=== PATIENT | female | born 1995 | race Caucasian/White ===

== ENCOUNTER 2019-12-20 14:17 | Emergency (ER) | payer SELFPAY ==
[2019-12-20 14:26] VITALS: BP 106/72; PULSE 93; RESP 18; TEMP 36.9; O2SAT 97; BMI 21.4
--- NOTE | 2019-12-20 15:30 | W.ED.BACK ---
HPI - Back Pain/Injury General: Chief Complaint: Back Pain/Injury Stated Complaint: back pain Time Seen by Provider: 12/20/19 15:30 Source: patient Mode of arrival: ambulatory Limitations: no limitations History of Present Illness: HPI Narrative: Patient is a 23-year-old female who presents to ED today with complaints of upper back pain over the past 4 days. 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 She noticed pain in her upper back following that shift. She states pain is to the left of her lower cervical spine/upper thoracic and radiates down into her left arm. She is not having any chest pain, difficulty breathing, cough, shortness of breath, painful or difficulty swallowing. No fever/chills. MD elicited complaint: back pain Onset (ago): day(s) Timing: constant Location: left upper back Radiation: other (L UE) Relieving factors: none Associated symptoms: Reports no associated symptoms; Deny chills or fever(s) Review of Systems Const: Denies: fever(s) or chills Eyes: Denies: change in vision Card: Denies: chest pain Resp: Denies: dyspnea Musc: Reports: back pain and extremity pain (L UE; radiation from back pain); Denies: neck pain, extremity swelling, joint pain or joint swelling Neuro: Reports: sensory changes (reports nerve pain to L UE); Denies: weakness in extremities Physical Exam Const: COMMON NORMALS: no acute distress, average body habitus, patient oriented x3, no limitations, healthy appearing, alert and well nourished Chest: COMMONS NORMALS: normal inspection of the chest and normal palpation of entire chest wall Resp: COMMON NORMALS: normal respiratory effort and clear to auscultation bilaterally AUSCULTATION: clear to auscultation bilaterally Cardio: COMMON NORMALS: regular rate and regular rhythm RATE: regular rate RHYTHM: regular rhythm Back/Pelvis: OTHER: TTP between area of medial left scapula and lower c spine/upper t spine BACK IMAGE (FEMALE): 1. area of pain Extremity: COMMON NORMALS: normal to inspection and full ROM GENERAL: Yes normal exam except as noted OTHER: strength 5/5 bilateral UEs; NV intact Neuro: COMMON NORMALS: patient oriented x3, moves all extremities, no focal motor deficits and no sensory deficits noted SENSORIUM/ORIENTATION: Yes alert Skin: COMMON NORMALS: no rashes or lesions noted GENERAL SKIN EXAM: no rashes or lesions noted Course Vital Signs: Vital signs: Vital Signs Temperature 98.4 F 12/20/19 14:26 Pulse Rate 93 12/20/19 14:26 Respiratory Rate 18 12/20/19 14:26 Blood Pressure 106/72 12/20/19 14:26 Pulse Oximetry 97 12/20/19 14:26 MDM - Back Pain/Injury MDM Narrative: Medical decision making narrative: Pt with pain down into L UE consistent with lower cervical radiculopathy. Will treat with steroids/muscle relaxers. Recommend followup with PCP if pain/symptoms persist. 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
[2019-12-20 15:49] VITALS: BP 98/69; PULSE 69; RESP 18; O2SAT 97
[2019-12-20] MEDS: ketorolac 30 mg/mL INJ IM (15:50)
[2019-12-20] MEDS: dexamethasone 10 mg/mL INJ 6 MG IM (15:51)
[2019-12-20 16:18] VITALS: BP 105/75; PULSE 70; RESP 18; O2SAT 97
== END 2019-12-20 16:19 | disposition home or self-care (01) ==
LOC: ER 15:57
PROVIDERS: Emergency Provider Physician Assistant; PCP Nurse Practitioner Family
DX: M54.12 Radiculopathy, cervical region (principal)
CPT/HCPCS: 12345; 96372; 99281; 99283; J1100; J1885

== ENCOUNTER 2020-04-20 19:26 | Emergency (ER) | payer OTHER, SELFPAY ==
[2020-04-20 19:56] VITALS: BP 106/73; PULSE 79; RESP 17; TEMP 36.8; O2SAT 97; BMI 22.4
--- NOTE | 2020-04-20 20:04 | ED_ITS ---
HPI - General Adult General: Chief complaint: General Medical Stated complaint: RIGHT SIDE JAW PAIN Time Seen by Provider: 04/20/20 20:04 History of Present Illness: HPI narrative: Patient is a 24-year-old female comes to the ED with right sided jaw pain. Patient says she has been dealing with this problem for the past several years. She says she grinds her teeth at night and tenses her jaw frequently throughout the day. She has episodes where she will have more acute jaw pain that lasts for couple hours to 1 to 2 days. She says currently she has been having right jaw pain for the past 4 days. She rates pain a 5 out of 10. Associated symptoms: Deny chest pain, dyspnea, headache(s), nausea, rash, palpitations or vomiting Review of Systems Const: Denies: fever(s), chills or fatigue Eyes: Denies: change in vision or eye discomfort ENMT: Reports: other (right jaw pain when opening and closing); Denies: throat pain, odynophagia, nasal discharge or nasal congestion Card: Denies: chest pain, palpitations, edema, swelling of feet/ankles, dyspnea on exertion or orthopnea Resp: Denies: dyspnea, productive cough or non-productive cough GI: Denies: abdominal pain, nausea, vomiting, diarrhea, constipation or hematochezia : Denies: flank pain, dysuria or hematuria Musc: Denies: neck pain, back pain or extremity swelling Skin/Breast: Denies: rash or new lesions Neuro: Denies: headache(s), numbness in extremities or weakness in extremities PFS ED PFSH: Social History Smoking and tobacco status: never smoked Physical Exam Const: COMMON NORMALS: no acute distress, patient oriented x3, healthy appearing and alert GENERAL APPEARANCE: cooperative and comfortable HENMT: COMMON NORMALS: normocephalic HEAD & SCALP: normocephalic FACE & SINUS: TMJ findings (No audible popping or clicking. Nontender to palpation and no erythema or swelling.) Nontender TMJ laterality: right MOUTH: Normal oral and palatal mucosa present and TMJ findings (No audible popping or clicking. Nontender to palpation and no erythema or swelling.) THROAT: posterior oropharynx normal and uvula midline Eye: COMMON NORMALS: Equal, round and reactive pupils present PUPIL: Yes Equal, round and reactive pupils present Neck/C-Spine: COMMON NORMALS: supple GENERAL: Yes normal visual inspection Resp: COMMON NORMALS: normal respiratory effort, No retractions, No use of accessory muscles and clear to auscultation bilaterally AUSCULTATION: clear to auscultation bilaterally Cardio: COMMON NORMALS: regular rate, regular rhythm, S1 normal heart sound present, S2 normal heart sound present, No gallops present (Cardio), No clicks present (Cardio), No murmurs present (Cardio) and Peripheral pulses 2+ throughout RATE: regular rate RHYTHM: regular rhythm HEART SOUNDS: S1 normal heart sound present and S2 normal heart sound present PERIPHERAL PULSES: Peripheral pulses 2+ throughout GI: COMMON NORMALS: Normal to inspection, nondistended, normoactive bowel sounds present, Soft to palpation, non-tender and no masses PALPATION: Yes Soft to palpation : COMMON NORMALS: Yes no CVA tenderness BLADDER/KIDNEY EXAM: Yes no CVA tenderness Back/Pelvis: COMMON NORMALS: no CVA tenderness Extremity: COMMON NORMALS: normal to inspection and no pedal edema Neuro: COMMON NORMALS: patient oriented x3 and moves all extremities SENSORIUM/ORIENTATION: Yes alert Skin: GENERAL SKIN EXAM: dry skin Course Vital Signs: Vital signs: Vital Signs Temperature 98.2 F 04/20/20 19:56 Pulse Rate 79 04/20/20 19:56 Respiratory Rate 17 04/20/20 19:56 Blood Pressure 106/73 04/20/20 19:56 Pulse Oximetry 97 04/20/20 19:56 MDM - General Adult MDM Narrative: Medical decision making narrative: Patient is a 24-year-old female comes to the ED with acute on chronic right jaw pain. Right jaw has pain when opening and closing. No erythema and nontender to palpation. No audible clicking or popping. hCG urine was negative. Patient diagnosed with TMJ joint pain on the right side. Given dose of Toradol while here in the ED and sent home with prescription for Medrol Dosepak and ibuprofen 800 mg. Return ED precautions given. Follow-up with PCP in 7 to 10 days. Patient understood agree with plan. Lab Data: Labs: Lab Results 04/20/20 Range/Units 20:27 HCG, Qual Negative (Negative) Discharge Plan Discharge Patient Disposition: Home Clinical Impression: Temporomandibular joint (TMJ) pain Qualifiers: Laterality: right Qualified Code(s): M26.621 - Arthralgia of right temporomandibular joint Condition: Stable Prescriptions: New ibuprofen 800 mg tablet 800 mg PO Q8H PRN (Reason: pain) Qty: 30 RF: 0 Medrol (Milo) 4 mg tablets,dose pack See Rx Instructions .ROUTE .COMPLEX Qty: 21 RF: 0 No Action amoxicillin-pot clavulanate [Augmentin] 875-125 mg tablet 1 tab PO BID 10 Days Qty: 20 RF: 0 Discharge Orders: Discharge Order (Routine); Ordered 04/20/20 Ordered By: Helio Rueda Discharge Diet: Regular Discharge Activity: Increase activity as tolerated Patient Instructions: Temporomandibular Disorder (ED), TMJ (Temporomandibular Joint Syndrome) Activity Restrictions/Additional Instructions: Follow-up with medical provider as directed in 7 to 10 days. Take medications as prescribed. Return to the ER or your medical provider if condition worsens. Please read and understand discharge instructions. If any questions, please ask. 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
[2020-04-20 21:22] LABS: HCG Qualitative Urine. Negative (Negative)
[2020-04-20] MEDS: ketorolac 60 mg/2 mL INJ IM (21:43)
== END 2020-04-20 21:45 | disposition home or self-care (01) ==
PROVIDERS: Emergency Provider Physician Assistant
DX: M26.621 Arthralgia of right temporomandibular joint (principal)
CPT/HCPCS: 12345; 81025; 96372; 99281; 99283; J1885

== ENCOUNTER 2020-05-22 17:54 | Emergency (ER) | payer OTHER, MEDICAID, SELFPAY ==
[2020-05-22 18:10] VITALS: BP 117/83; PULSE 82; RESP 16; TEMP 36.2; O2SAT 99; BMI 21.8
--- NOTE | 2020-05-22 19:18 | ED_ITS ---
HPI - Dental/Oral General: Chief complaint: Dental/Oral Stated complaint: Pain in Jaw/Right side Time Seen by Provider: 05/22/20 19:15 Source: patient Mode of arrival: ambulatory Limitations: no limitations History of Present Illness: HPI Narrative: Luz Maria is a nice 24-year-old female who comes in complaining of right TMJ pain. She states the pain also is in her ear. She denies any dental pain. She denies any swelling of her face, nausea or vomiting, fever or otherwise. Patient states that she grinds her teeth a good deal because she has anxiety. She states that is starting to hurt when she does this. She denies any other complaints or concerns. Associated symptoms: Reports ear or mastoid pain; Denies fever(s), odynophagia or tongue swelling Review of Systems Const: Denies: fever(s), chills, body aches, fatigue, malaise or diaphoresis Eyes: Denies: change in vision, blurry vision, photophobia, eye discomfort, eye discharge, eye redness or yellow eyes ENMT: Reports: ear or mastoid pain; Denies: throat pain, odynophagia, hoarseness, swelling of lips/tongue, ear discharge, change in hearing or nasal discharge Card: Denies: chest pain, palpitations, irregular heart rhythm, edema, lighth eadedness, syncope, pre-syncope, dyspnea on exertion or orthopnea Resp: Denies: dyspnea, productive cough, non-productive cough, wheezing, hemoptysis or chest congestion GI: Denies: abdominal pain, nausea, vomiting, hematemesis, coffee ground emesis, heartburn, diarrhea, constipation, GI cramping, hematochezia or melena : Denies: flank pain, dysuria, urinary frequency, urinary urgency or hematuria Musc: Denies: neck pain, back pain, extremity pain, extremity swelling, joint pain, joint swelling, joint redness, joint warmth or joint stiffness Skin/Breast: Denies: rash, pruritus, erythema, skin pain or skin tenderness Neuro: Denies: headache(s), numbness in extremities, weakness in extremities, sensory changes, lack of coordination, difficulty walking, dizziness, vertigo, confusion, Slurred speech present or seizure-like activity Slim/Lymph: Denies: easy bruising, easy bleeding, petechiae, purpura or enlarged lymph nodes All/Imm: Denies: urticaria, throat swelling, tongue swelling, facial swelling or acute wheezing PFSH ED PFSH: Medical History (Updated 05/22/20 @ 19:26 by Verónica Nice) Anxiety Social History Smoking and tobacco status: never smoked Physical Exam Const: COMMON NORMALS: no acute distress, patient oriented x3, no limitations and alert GENERAL APPEARANCE: cooperative HENMT: COMMON NORMALS: normocephalic, atraumatic, external ears normal, EAC's normal and Normal external nose present HEAD & SCALP: normal to inspection, normocephalic and atraumatic FACE & SINUS: normal facial exam and face symmetric NOSE: Normal external nose present and Normal nares present EXTERNAL EAR: Yes external ears normal EXTERNAL AUDITORY CANAL: EAC's normal TYMPANIC MEMBRANE: TM abnormal TM laterality: right (No pain with palpation of pinna or with pressure on the tragus.) Details: erythematous MOUTH: Normal oral and palatal mucosa present, lip normal, tongue normal and TMJ findings TMJ Findings: Tender TMJ to palpation laterality: right Eye: COMMON NORMALS: Equal, round and reactive pupils present and conjunctivae normal GENERAL EYE: appearance normal, both eyes and all related structures ALIGNMENT: Yes alignment normal PERIORBITAL: periorbital findings normal EYELID: eyelids normal CONJUNCTIVA: Yes conjunctivae normal SCLERA: sclerae normal PUPIL: Yes Equal, round and reactive pupils present Neck/C-Spine: COMMON NORMALS: full ROM, no lymphadenopathy, supple, no meningeal signs and no JVD GENERAL: Yes normal visual inspection and Yes trachea midline Chest: COMMONS NORMALS: normal inspection of the chest and normal palpation of entire chest wall Resp: COMMON NORMALS: normal respiratory effort, No retractions, No use of accessory muscles and clear to auscultation bilaterally EFFORT & INSPECTION: Yes able to speak in complete sentences and Yes symmetric chest movement AUSCULTATION: clear to auscultation bilaterally, no crackles, no rales, no rhonchi and no wheezes Cardio: COMMON NORMALS: no JVD, regular rate, regular rhythm, S1 normal heart sound present and S2 normal heart sound present RATE: regular rate RHYTHM: regular rhythm HEART SOUNDS: S1 normal heart sound present, S2 normal heart sound present, no click, no gallops, no murmurs and no rubs GI: COMMON NORMALS: Soft to palpation and No hepatosplenomegaly present PALPATION: Yes Soft to palpation, No Tenderness to palpation present (GI), No Guarding due to palpation present (GI), No Rigid due to palpation, Yes No hepatosplenomegaly present, No Hernia present, No Palpable mass present and No Pulsatile mass present : COMMON NORMALS: Yes no CVA tenderness BLADDER/KIDNEY EXAM: Yes no CVA tenderness EXTERNAL FEMALE EXAM: No Hernia present Back/Pelvis: COMMON NORMALS: no CVA tenderness, thoracic and lumbar spine normal to inspection, no thoracic nor lumbar tenderness and thoraco-lumbar ROM normal Extremity: COMMON NORMALS: normal to inspection, full ROM, capillary refill normal, no joint enlargement, no clubbing, cyanosis or edema and no calf tenderness Neuro: COMMON NORMALS: patient oriented x3, CN's II-XII intact bilaterally, moves all extremities, no focal motor deficits and no sensory deficits noted SENSORIUM/ORIENTATION: Yes alert MENINGEAL SIGNS: Yes no meningeal signs SPEECH: speech normal Psych: COMMON NORMALS: mental status grossly normal, Normal thought process present, cooperative, normal affect, speech normal and activity/motor behavior normal SPEECH: Yes normal speech THOUGHT PROCESS: Normal thought process present Skin: COMMON NORMALS: no rashes or lesions noted, turgor normal, no jaundice, no petechiae and no mottling GENERAL SKIN EXAM: no rashes or lesions noted and turgor normal Course Vital Signs: Vital signs: Vital Signs Temperature 97.2 F L 05/22/20 18:10 Pulse Rate 82 05/22/20 18:10 Respiratory Rate 16 05/22/20 18:10 Blood Pressure 117/83 05/22/20 18:10 Pulse Oximetry 99 05/22/20 18:10 MDM - Dental/Oral MDM Narrative: Medical decision making narrative: Patient appears to have more of a TMJ syndrome than true otitis media. I will treat her for both. At this time she appears stable for discharge. I see no sign of deep space infection such as otitis externa, Tristin's angina, dental infection or otherwise. Patient agrees to return for symptoms change or worsen but she wants to try to follow-up with Dr. Nayak as an outpatient but will return here if needed. Discharge Plan Discharge Patient Disposition: Home Clinical Impression: TMJ inflammation Otitis media Qualifiers: Otitis media type: suppurative Chronicity: acute Laterality: right Recurrence: non-recurrent Spontaneous tympanic membrane rupture: without spontaneous rupture Qualified Code(s): H66.001 - Acute suppurative otitis media without spontaneous rupture of ear drum, right ear Condition: Stable Prescriptions: New Augmentin 875-125 mg tablet 1 tab PO BID 10 Days Qty: 20 RF: 0 hydroxyzine HCl 25 mg tablet 25 mg PO QID PRN (Reason: anxiety) Qty: 30 RF: 0 No Action amoxicillin-pot clavulanate [Augmentin] 875-125 mg tablet 1 tab PO BID 10 Days Qty: 20 RF: 0 ibuprofen 800 mg tablet 800 mg PO Q8H PRN (Reason: pain) Qty: 30 RF: 0 Medrol (Milo) 4 mg tablets,dose pack See Rx Instructions .ROUTE .COMPLEX Qty: 21 RF: 0 Discharge Orders: Discharge ED (Routine); Ordered 05/22/20 Ordered By: Verónica Nice Referrals: Joseph Nayak MD [Physician] - Discharge Diet: Soft Mechanical Discharge Activity: Increase activity as tolerated Patient Instructions: Otitis Media (ED), Temporomandibular Disorder (ED) Activity Restrictions/Additional Instructions: Please return to the ER immediately for any of the signs or symptoms listed on your discharge instruction sheets, worsening/changing of your symptoms, you are not getting better as quickly as expected, or for ANY other cause or concerns. Return to the ER for facial swelling, fever, worsening pain, or for any other cause for concern. 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
[2020-05-22] MEDS: amoxicillin-clav 875-125 mg Tablet 1 TAB PO (20:05)
== END 2020-05-22 20:10 | disposition home or self-care (01) ==
PROVIDERS: Emergency Provider Emergency Medicine
DX: M26.69 Other specified disorders of temporomandibular joint (principal); H66.001 Acute suppurative otitis media without spontaneous rupture of ear drum, right ear
CPT/HCPCS: 12345; 99281; 99283

== ENCOUNTER → 2020-07-11 13:58 | Outpatient (BNVA) | payer MEDICAID, SELFPAY | PROVIDERS: Visit Provider Obstetrics & Gynecology | DX: N93.9 Abnormal uterine and vaginal bleeding, unspecified (principal) | CPT/HCPCS: 83001; 84146; 84443; 84703 ==

== ENCOUNTER → 2020-07-18 16:03 | Outpatient (BNVA) | payer OTHER, MEDICAID, SELFPAY | PROVIDERS: Visit Provider Obstetrics & Gynecology | DX: R10.2 Pelvic and perineal pain (principal) | CPT/HCPCS: 76830 ==

== ENCOUNTER 2020-08-16 14:59 | Emergency (ER) | payer OTHER, MEDICAID, SELFPAY ==
[2020-08-16 15:05] VITALS: BP 95/64; PULSE 72; RESP 16; TEMP 36.5; O2SAT 99; BMI 21.1
[2020-08-16 15:09] VITALS: BP 108/66; PULSE 63; RESP 18; O2SAT 99
--- NOTE | 2020-08-16 16:05 | ED_ITS ---
HPI - Nausea/Vomiting/Diarrhea General: Chief complaint: Nausea/Vomiting/Diarrhea Stated complaint: N/V Time Seen by Provider: 08/16/20 15:58 Source: patient Mode of arrival: ambulatory Limitations: no limitations History of Present Illness: HPI Narrative: Symptoms started about 3 AM this morning, sudden onset of nausea and vomiting. The last meal she ate was yesterday afternoon and did not have anything at nighttime. She denies any fever but has some chills just before vomiting. She has occasional lightheadedness just before vomiting. She is here to be evaluated for this MD elicited complaint: nausea and vomiting Onset (ago): hour(s) (12) Description of vomiting: food contents Associated nausea: Yes Associated abdominal pain: Yes Location of pain: Epigastric Pain consistency: intermittent (only before vomiting) Severity: mild Quality: cramping Exacerbating factors: none Relieving factors: none Associated symtoms: Reports nausea; Denies altered mental status, anxiety, bloating, change in vision, chest pain, cough, diaphoresis, decreased urine output, dizziness, dysuria, epistaxis, fatigue, fecal incontinence, fevers/chills, headache(s), anorexia, malaise, myalgias, numbness, palpitations, rash, short of breath, syncope, tenesmus, tinnitus or weakness Review of Systems General: Reports: 10 or more systems reviewed and unremarkable except in HPI and below Const: Denies: fatigue, malaise or diaphoresis Eyes: Denies: change in vision ENMT: Denies: tinnitus or epistaxis Card: Denies: chest pain, palpitations or syncope Resp: Denies: dyspnea, productive cough or non-productive cough GI: Reports: nausea; Denies: bloating or fecal incontinence : Denies: dysuria Musc: Denies: neck pain, back pain or extremity swelling Skin/Breast: Denies: rash, pruritus or erythema Neuro: Denies: headache(s) or dizziness Psych: Denies: anxiety Endo: Denies: polyuria, polydipsia or tired all the time PFSH ED PFSH: Medical History (Reviewed 08/16/20 @ 16:07 by Nayeli Cueva MD, [facility] [place]) Anxiety Family History (Reviewed 08/16/20 @ 16:07 by Nayeli Cueva MD, [facility] [place]) Mother Heart disease Denies family history of Colon cancer Ovarian cancer Diabetes Clotting disorder Hyperlipidemia Breast cancer Anesthesia complication Bleeding disorder Hypertension Uterine cancer Thyroid condition Stroke Social History (Reviewed 08/16/20 @ 16:07 by Nayeli Cueva MD, [facility] [place]) Smoking and tobacco status: former smoker Quit status (tobacco): has quit using tobacco Year quit tobacco: 2019 Alcohol intake: never Female Reproductive History: Date of last menstrual period: 07/26/20 Physical Exam Const: COMMON NORMALS: no acute distress, average body habitus, patient oriented x3, no limitations, healthy appearing, alert and well nourished EXAM LIMITATIONS: no altered mental status HENMT: COMMON NORMALS: normocephalic, atraumatic and moist oral mucous membranes HEAD & SCALP: normocephalic and atraumatic Neck/C-Spine: COMMON NORMALS: no meningeal signs and no JVD Resp: COMMON NORMALS: normal respiratory effort, No retractions, No use of accessory muscles, clear to auscultation bilaterally and percussion normal AUSCULTATION: clear to auscultation bilaterally PERCUSSION: percussion normal Cardio: COMMON NORMALS: no JVD, regular rate, regular rhythm, S1 normal heart sound present, S2 normal heart sound present, No gallops present (Cardio), No clicks present (Cardio), No murmurs present (Cardio), No rub (Cardio) and Peripheral pulses 2+ throughout RATE: regular rate RHYTHM: regular rhythm HEART SOUNDS: S1 normal heart sound present and S2 normal heart sound present PERIPHERAL PULSES: Peripheral pulses 2+ throughout GI: COMMON NORMALS: Normal to inspection, nondistended, normoactive bowel sounds present, Soft to palpation, non-tender, No hepatosplenomegaly present, no masses and no bruits PALPATION: Yes Soft to palpation and Yes No hepatosplenomegaly present Extremity: COMMON NORMALS: normal to inspection, full ROM, capillary refill normal, no calf tenderness and no pedal edema Neuro: COMMON NORMALS: patient oriented x3 SENSORIUM/ORIENTATION: Yes alert MENINGEAL SIGNS: Yes no meningeal signs Skin: COMMON NORMALS: no rashes or lesions noted, no wounds, turgor normal, no jaundice, no petechiae and no mottling GENERAL SKIN EXAM: no rashes or lesions noted and turgor normal Course Reevaluation(s): Reevaluation #1: Discussed her lab findings with her, unremarkable. No need for imaging. We will discharge her home with a prescription for antiemetics. She voiced understanding and is in agreement with the plan. Time: 18:29 Vital Signs: Vital signs: Vital Signs Temperature 97.7 F 08/16/20 15:05 Pulse Rate 63 08/16/20 18:38 Respiratory Rate 18 08/16/20 18:38 Blood Pressure 101/61 08/16/20 18:38 Pulse Oximetry 98 08/16/20 18:38 MDM - Nausea/Vomiting/Diarrhea MDM Narrative: Medical decision making narrative: 24-year-old female patient who presents to the emergency department with nausea and vomiting that started earlier today. Examination is benign, labs unremarkable. No indication for imaging at this time. She is discharged home with a prescription for antiemetics. Medical Records: Attestation: I reviewed the patient's medical records. Lab Data: Attestation: I reviewed the patient's lab results. Labs: Lab Results 08/16/20 08/16/20 08/16/20 Range/Units 16:26 16:26 16:26 WBC 13.5 H (4.0-10.0) 10^3/ uL RBC 4.71 (4.1-5.3) 10^6/u L Hgb 14.0 (11.5-15.3) g/dL Hct 42.4 (37.0-47.0) % MCV 90.0 (81-99) fL MCH 29.7 (28.0-34.0) pg MCHC 33.0 (30.0-36.0) g/dL RDW 12.1 (12.1-15.1) % Plt Count 307 (130-400) 10^3/c mm MPV 10.9 H (7.4-10.4) fL Neut % (Auto) 75.8 % Lymph % (Auto) 17.9 % [place] % (Auto) 5.1 % Eos % (Auto) 0.4 % Baso % (Auto) 0.5 % Neut # (Auto) 10.20 H (1.8-7.7) 10^3/u L Lymph # (Auto) 2.4 (0.8-4.8) 10^3/u L [place] # (Auto) 0.7 (0.2-0.9) 10^3/u L Eos # (Auto) 0.1 (0.0-0.8) 10^3/u L Baso # (Auto) 0.1 (0.0-0.1) 10^3/u L Nucleated RBC % (a uto) 0 % Nucleated RBCs # 0.0 /100WBC Sodium 137 (136-145) mmol/L Potassium 3.9 (3.5-5.1) mmol/L Chloride 104 (98-107) mmol/L Carbon Dioxide 23 (22-29) mmol/L Anion Gap 13.9 (5-19) BUN 7 (6-20) mg/dL Creatinine 0.5 (0.5-0.9) mg/dL GFR Calculation 154.3 H (90-130) mL/min Glucose 88 (65-115) mg/dL Calculated Osmolal ity 281 L (285-295) mOsm/k g Lactate 0.8 (0.5-2.2) mmol/L Calcium 9.1 (8.5-10.5) mg/dL Total Bilirubin 0.9 (0.15-1.2) mg/dL AST 14 (0-32) U/L ALT 7 (0-33) U/L Alkaline Phosphata se 64 (35-105) IU/L C-Reactive Protein 0.9 (0.0-4.9) mg/L Total Protein 7.3 (6.6-8.7) g/dL Albumin 4.7 (3.5-5.2) g/dL Globulin 2.6 (1.3-4.6) g/dL Lipase 16 (13-60) U/L HCG, Qual (Negative) Urine Color (Yellow) Urine Appearance (CLEAR) Urine pH (5-7) Ur Specific Gravit y (1.005-1.030) Urine Protein (Negative) Urine Glucose (UA) (Normal) Urine Ketones (Negative) Urine Blood (Negative) Urine Nitrate (Negative) Urine Bilirubin (Negative) Urine Urobilinogen (Negative) mg/dL Ur Leukocyte Merle ase (Negative) Urine RBC (0-2) /hpf Urine WBC (0-5) /hpf Ur Squamous Epith Cells (0-5) /hpf Amorphous Sediment Urine Bacteria (NONE) /hpf Urine Mucus /hpf 03/03/21 03/03/21 Range/Units 16:26 17:21 WBC (4.0-10.0) 10^3/ uL RBC (4.1-5.3) 10^6/u L Hgb (11.5-15.3) g/dL Hct (37.0-47.0) % MCV (81-99) fL MCH (28.0-34.0) pg MCHC (30.0-36.0) g/dL RDW (12.1-15.1) % Plt Count (130-400) 10^3/c mm MPV (7.4-10.4) fL Neut % (Auto) % Lymph % (Auto) % [place] % (Auto) % Eos % (Auto) % Baso % (Auto) % Neut # (Auto) (1.8-7.7) 10^3/u L Lymph # (Auto) (0.8-4.8) 10^3/u L [place] # (Auto) (0.2-0.9) 10^3/u L Eos # (Auto) (0.0-0.8) 10^3/u L Baso # (Auto) (0.0-0.1) 10^3/u L Nucleated RBC % (a uto) % Nucleated RBCs # /100WBC Sodium (136-145) mmol/L Potassium (3.5-5.1) mmol/L Chloride (98-107) mmol/L Carbon Dioxide (22-29) mmol/L Anion Gap (5-19) BUN (6-20) mg/dL Creatinine (0.5-0.9) mg/dL GFR Calculation (90-130) mL/min Glucose (65-115) mg/dL Calculated Osmolal ity (285-295) mOsm/k g Lactate (0.5-2.2) mmol/L Calcium (8.5-10.5) mg/dL Total Bilirubin (0.15-1.2) mg/dL AST (0-32) U/L ALT (0-33) U/L Alkaline Phosphata se (35-105) IU/L C-Reactive Protein (0.0-4.9) mg/L Total Protein (6.6-8.7) g/dL Albumin (3.5-5.2) g/dL Globulin (1.3-4.6) g/dL Lipase (13-60) U/L HCG, Qual Negative (Negative) Urine Color Yellow (Yellow) Urine Appearance Clear (CLEAR) Urine pH 5 (5-7) Ur Specific Gravit y 1.025 (1.005-1.030) Urine Protein Neg (Negative) Urine Glucose (UA) Norm (Normal) Urine Ketones Negative (Negative) Urine Blood Neg (Negative) Urine Nitrate Negative (Negative) Urine Bilirubin Neg (Negative) Urine Urobilinogen 4 H (Negative) mg/dL Ur Leukocyte Merle ase 1+ H (Negative) Urine RBC Rare (0-2) /hpf Urine WBC 5-10 H (0-5) /hpf Ur Squamous Epith Cells 0-4 H (0-5) /hpf Amorphous Sediment Not Reportable Urine Bacteria None (NONE) /hpf Urine Mucus 1+ /hpf Discharge Plan Discharge Patient Disposition: Home Clinical Impression: Nausea & vomiting Qualifiers: Vomiting type: unspecified Vomiting Intractability: unspecified Qualified Code(s): R11.2 - Nausea with vomiting, unspecified Condition: Stable Prescriptions: New promethazine 25 mg tablet 25 mg PO TID PRN (Reason: allergy symptoms) Qty: 30 RF: 0 Continued Tylenol 325 mg Tablet 325 - 650 mg PO QID PRN (Reason: PAIN/HEADACHE) RF: 0 ibuprofen 200 mg Tablet 200 - 400 mg PO Q6H PRN (Reason: PAIN/HEADACHE) RF: 0 Discharge Orders: Discharge ED (Routine); Ordered 08/16/20 Ordered By: Nayeli Cueva Discharge Diet: Advance as tolerated Discharge Activity: Increase activity as tolerated Patient Instructions: Acute Nausea and Vomiting (ED) Activity Restrictions/Additional Instructions: Return for any new or worsening symptoms. Take the medication as needed for nausea or vomiting. Continue your home medications as needed. 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
[2020-08-16 16:31] VITALS: BP 108/66; PULSE 66; RESP 18; O2SAT 99
[2020-08-16] MEDS: ondansetron 2 mg/ML SDV 2 mL 4 MG IVP (16:31)
[2020-08-16] MEDS: sodium chloride 0.9% 1,000 ML 999 ML IV (16:31)
[2020-08-16 16:38] LABS: Basophils # 0.1 10^3/uL (0.0-0.1); Basophils % 0.5 %; Eosinophils # 0.1 10^3/uL (0.0-0.8); Eosinophils % 0.4 %; Hematocrit 42.4 % (37.0-47.0); Lymphocytes # 2.4 10^3/uL (0.8-4.8); Lymphocytes % 17.9 %; Mean Corpuscular Hemoglobin 29.7 pg (28.0-34.0); Mean Platelet Volume 10.9 fL (7.4-10.4); Monocytes # 0.7 10^3/uL (0.2-0.9); Monocytes % 5.1 %; Neutrophils % 75.8 %; Nucleated Red Blood Cells % 0 %; Platelet Count 307 10^3/cmm (130-400); Red Blood Count 4.71 10^6/uL (4.1-5.3); Red Cell Distribution Width 12.1 % (12.1-15.1); White Blood Count 13.5 10^3/uL (4.0-10.0)
[2020-08-16 16:51] LABS: HCG, Serum Qual Negative (Negative)
[2020-08-16 16:58] LABS: Lactate (Lactic Acid level) 0.8 mmol/L (0.5-2.2)
[2020-08-16 16:59] LABS: Alanine Aminotransferase 7 U/L (0-33); Albumin Level 4.7 g/dL (3.5-5.2); Alkaline Phosphatase 64 IU/L (35-105); Anion Gap 13.9 (5-19); Aspartate Amino Transferase 14 U/L (0-32); Blood Urea Nitrogen 7 mg/dL (6-20); C Reactive Protein 0.9 mg/L (0.0-4.9); Calcium 9.1 mg/dL (8.5-10.5); Carbon Dioxide 23 mmol/L (22-29); Chloride 104 mmol/L (98-107); Globulin 2.6 g/dL (1.3-4.6); Glomerular Filtration Rate 154.3 mL/min (90-130); Glucose 88 mg/dL (65-115); Lipase 16 U/L (13-60); Osmolality Calculated 281 mOsm/kg (285-295); Potassium 3.9 mmol/L (3.5-5.1); Sodium 137 mmol/L (136-145); Total Bilirubin 0.9 mg/dL (0.15-1.2); Total Protein 7.3 g/dL (6.6-8.7)
[2020-08-16 17:23] VITALS: BP 102/66; PULSE 59; RESP 18; O2SAT 98
[2020-08-16 18:00] VITALS: BP 101/61; PULSE 58; RESP 16; O2SAT 98
[2020-08-16 18:03] LABS: Add Urine Microscopic? YES; Bilirubin Urine Neg (Negative); Blood Urine Neg (Negative); Glucose Urine UA Norm (Normal); Ketones Urine Negative (Negative); Leukocyte Esterase Urine 1+ (Negative); Nitrate Urine Negative (Negative); Protein Urine Neg (Negative); Specific Gravity, Urine 1.025 (1.005-1.030); Urine Appearance Clear (CLEAR); Urine Color Yellow (Yellow); Urobilinogen Urine 4 mg/dL (Negative); pH Urine 5 (5-7)
[2020-08-16 18:04] LABS: Mucus Urine 1+ /hpf; RBC Urine RARE /hpf (0-2); Squamous Epithelial Cell Urine 0-4 /hpf (0-5)
[2020-08-16 18:05] LABS: Add Urine Culture? No
[2020-08-16 18:38] VITALS: BP 101/61; PULSE 63; RESP 18; O2SAT 98
== END 2020-08-16 18:38 | disposition home or self-care (01) ==
PROVIDERS: Emergency Provider Family Medicine
DX: R11.2 Nausea with vomiting, unspecified (principal); Z87.891 Personal history of nicotine dependence
CPT/HCPCS: 80053; 81001; 83605; 83690; 84703; 85025; 86140; 96361; 96374; 99283; J2405; J7030

== ENCOUNTER → 2020-08-18 11:04 | Outpatient (BNVA) | payer OTHER, MEDICAID, SELFPAY | PROVIDERS: Visit Provider Obstetrics & Gynecology | DX: G89.29 Other chronic pain (principal); R10.2 Pelvic and perineal pain | CPT/HCPCS: 87635 ==

== ENCOUNTER 2020-08-23 07:24 | Day surgery (SDC) | payer MEDICAID, SELFPAY ==
[2020-08-21 11:46] VITALS: BMI 20.9
[2020-08-21 12:27] LABS: Basophils # 0.1 10^3/uL (0.0-0.1); Basophils % 0.7 %; Eosinophils # 0.1 10^3/uL (0.0-0.8); Eosinophils % 0.8 %; Hematocrit 41.4 % (37.0-47.0); Hemoglobin 13.6 g/dL (11.5-15.3); Lymphocytes # 2.7 10^3/uL (0.8-4.8); Lymphocytes % 31.5 %; Mean Corpuscular HGB Conc 32.9 g/dL (30.0-36.0); Mean Corpuscular Hemoglobin 29.6 pg (28.0-34.0); Mean Platelet Volume 10.9 fL (7.4-10.4); Monocytes # 0.5 10^3/uL (0.2-0.9); Monocytes % 5.4 %; Neutrophils # 5.21 10^3/uL (1.8-7.7); Neutrophils % 61.5 %; Nucleated Red Blood Cells % 0 %; Platelet Count 288 10^3/cmm (130-400); Red Cell Distribution Width 12.2 % (12.1-15.1); White Blood Count 8.5 10^3/uL (4.0-10.0)
[2020-08-21 12:35] LABS: Add Urine Microscopic? YES; Bilirubin Urine Neg (Negative); Blood Urine 3+ (Negative); Glucose Urine UA Norm (Normal); Ketones Urine Negative (Negative); Leukocyte Esterase Urine Negative (Negative); Nitrate Urine Negative (Negative); Protein Urine Neg (Negative); Urine Appearance SL Hazy (CLEAR); Urine Color Yellow (Yellow); Urobilinogen Urine Norm (Negative); pH Urine 5 (5-7)
[2020-08-21 12:52] LABS: RBC Urine 25-40 /hpf (0-2)
[2020-08-21 12:53] LABS: Bacteria Urine 2+ /hpf; Squamous Epithelial Cell Urine 0-4 /hpf (0-5)
[2020-08-21 12:54] LABS: Add Urine Culture? Yes
--- NOTE | 2020-08-21 12:54 | ANES.PREANE2 ---
Pre-Anesthetic Assessment Pre-Anesthetic Assessment: Height/Weight: Height 1.65 m Weight 57.153 kg Preop Diagnosis: Chronic pelvic pain Proposed Procedure: Operation Date: 08/23/20 11:15 Proposed Procedures p Laparoscopy Diagnostic 71729 R10.2(Not Applicable) - Lb Griffith MD Was Beta Jessica taken within 24 hours: N/A Social: Social History: No alcohol and No tobacco Exam: Pre-Anes Outpt Exam: alert, oriented x 3, clear to auscultation bilaterally and regular rate & rhythm Airway: Submandibular: WNL Cervical ROM: WNL MP: 2 Dentition: Full Neuropsych: Neuropsych: Anxiety Comments: Chronic pain Anesthetic Plan: ASA status: 2 Anesthesia: General Other: PONV Risk of > 500 ml blood loss (7ml/kg in children): No PFSH Anesthesia PFSH: Medical History Anxiety Family History Mother Heart disease Denies family history of Colon cancer Ovarian cancer Diabetes Clotting disorder Hyperlipidemia Breast cancer Anesthesia complication Bleeding disorder Hypertension Uterine cancer Thyroid condition Stroke Social History (Updated 08/21/20 @ 08:10 by Salma Hernandez RN) Smoking and tobacco status: former smoker Quit status (tobacco): has quit using tobacco Year quit tobacco: 2019 Alcohol intake: never Substance/Drug Use: never Female Reproductive History: Date of last menstrual period: 08/20/20 Data Anesthesia CBC & Chem 7: 08/21/20 12:00 08/21/20 12:00 Other Labs: Laboratory Results - last 48 hr 08/21/20 08/21/20 11:55 12:00 WBC 8.5 RBC 4.60 Hgb 13.6 Hct 41.4 MCV 90.0 MCH 29.6 MCHC 32.9 RDW 12.2 Plt Count 288 MPV 10.9 H Neut % (Auto) 61.5 Lymph % (Auto) 31.5 [place] % (Auto) 5.4 Eos % (Auto) 0.8 Baso % (Auto) 0.7 Neut # (Auto) 5.21 Lymph # (Auto) 2.7 [place] # (Auto) 0.5 Eos # (Auto) 0.1 Baso # (Auto) 0.1 Nucleated RBC % (auto) 0 Nucleated RBCs # 0.0 Urine Color Yellow Urine Appearance Sl hazy Urine pH 5 Ur Specific [place] 1.010 Urine Protein Neg Urine Glucose (UA) Norm Urine Ketones Negative Urine Blood 3+ H Urine Nitrate Negative Urine Bilirubin Neg Urine Urobilinogen Norm Ur Leukocyte Esterase Negative Urine RBC 25-40 H Urine WBC None Ur Squamous Epith Cells 0-4 H Amorphous Sediment Not Reportable Urine Bacteria 2+ H Cardiac Studies: No Data to Display
[2020-08-21 13:29] LABS: Alanine Aminotransferase 7 U/L (0-33); Albumin Level 4.8 g/dL (3.5-5.2); Alkaline Phosphatase 65 IU/L (35-105); Anion Gap 14.4 (5-19); Aspartate Amino Transferase 14 U/L (0-32); Blood Urea Nitrogen 4 mg/dL (6-20); Calcium 9.8 mg/dL (8.5-10.5); Carbon Dioxide 27 mmol/L (22-29); Chloride 102 mmol/L (98-107); Globulin 2.5 g/dL (1.3-4.6); Glomerular Filtration Rate 104.6 mL/min (90-130); Glucose 71 mg/dL (65-115); Osmolality Calculated 285 mOsm/kg (285-295); Potassium 3.4 mmol/L (3.5-5.1); Sodium 140 mmol/L (136-145); Total Bilirubin 0.6 mg/dL (0.15-1.2); Total Protein 7.3 g/dL (6.6-8.7)
[2020-08-22 02:44] LABS: OR HCG Qualitative Urine Negative (Negative)
[2020-08-23] VITALS (10 sets, daily range): BP systolic 99–126; BP diastolic 57–82; PULSE 53–102; RESP 12–18; TEMP 36.3–36.9; O2SAT 96–100
[2020-08-23 07:51] LABS: OR HCG Qualitative Urine Negative (Negative)
--- NOTE | 2020-08-23 07:57 | P.ANESUD_ITS ---
Pre-Anesthetic Update Pre-Anesthetic Assessment: Date of Surgery/Procedure: 08/23/20 Preop Nicole gnosis: Chronic pelvic pain Proposed Procedure: Operation Date: 08/23/20 09:00 Proposed Procedures p Laparoscopy Diagnostic 22221 R10.2(Not Applicable) - Lb Griffith MD Any changes to Pre-Anesthetic Assessment?: No Last Intake: Intake Last Liquid Date 08/22/20 Last Liquid Time 23:00 Last Solid Date 08/22/20 Last Solid Time 23:00 Labs Last 48hrs: Laboratory Results - last 48 hr 08/21/20 08/21/20 08/21/20 11:55 11:55 12:00 WBC 8.5 RBC 4.60 Hgb 13.6 Hct 41.4 MCV 90.0 MCH 29.6 MCHC 32.9 RDW 12.2 Plt Count 288 MPV 10.9 H Neut % (Auto) 61.5 Lymph % (Auto) 31.5 [place] % (Auto) 5.4 Eos % (Auto) 0.8 Baso % (Auto) 0.7 Neut # (Auto) 5.21 Lymph # (Auto) 2.7 [place] # (Auto) 0.5 Eos # (Auto) 0.1 Baso # (Auto) 0.1 Nucleated RBC % (a uto) 0 Nucleated RBCs # 0.0 Sodium Potassium Chloride Carbon Dioxide Anion Gap BUN Creatinine GFR Calculation Glucose Calculated Osmolal ity Calcium Total Bilirubin AST ALT Alkaline Phosphata se Total Protein Albumin Globulin Urine Color Yellow Urine Appearance Sl hazy Urine pH 5 Ur Specific Gravit y 1.010 Urine Protein Neg Urine Glucose (UA) Norm Urine Ketones Negative Urine Blood 3+ H Urine Nitrate Negative Urine Bilirubin Neg Urine Urobilinogen Norm Ur Leukocyte Merle ase Negative Urine RBC 25-40 H Urine WBC None Ur Squamous Epith Cells 0-4 H Amorphous Sediment Not Reportable Urine Bacteria 2+ H Urine HCG, Qual Negative Blood Type Rho(D) Type Antibody Screen 08/21/20 08/21/20 08/23/20 12:00 12:00 07:49 WBC RBC Hgb Hct MCV MCH MCHC RDW Plt Count MPV Neut % (Auto) Lymph % (Auto) [place] % (Auto) Eos % (Auto) Baso % (Auto) Neut # (Auto) Lymph # (Auto) [place] # (Auto) Eos # (Auto) Baso # (Auto) Nucleated RBC % (a uto) Nucleated RBCs # Sodium 140 Potassium 3.4 L Chloride 102 Carbon Dioxide 27 Anion Gap 14.4 BUN 4 L Creatinine 0.7 GFR Calculation 104.6 Glucose 71 Calculated Osmolal ity 285 Calcium 9.8 Total Bilirubin 0.6 AST 14 ALT 7 Alkaline Phosphata se 65 Total Protein 7.3 Albumin 4.8 Globulin 2.5 Urine Color Urine Appearance Urine pH Ur Specific Gravit y Urine Protein Urine Glucose (UA) Urine Ketones Urine Blood Urine Nitrate Urine Bilirubin Urine Urobilinogen Ur Leukocyte Merle ase Urine RBC Urine WBC Ur Squamous Epith Cells Amorphous Sediment Urine Bacteria Urine HCG, Qual Negative Blood Type O Positive Rho(D) Type Positive Antibody Screen Negative Vitals: Temperature 98.2 F 08/23/20 07:43 Pulse Rate 79 08/23/20 07:43 Respiratory Rate 18 08/23/20 07:43 Blood Pressure 101/57 08/23/20 07:43 Blood Pressure Angie n 71 08/23/20 07:43 Pulse Oximetry 98 08/23/20 07:43 Oxygen Delivery Me thod 08/23/20 07:43 Exam: Pre-Anes Outpt Exam: alert, oriented x 3, clear to auscultation bilaterally and regular rate & rhythm Cardiac Studies: No Data to Display
[2020-08-23] MEDS: lactated ringers 500 ML IV (08:10)
[2020-08-23] MEDS: scopolamine 1.5 Patch 1 PATCH TRANSDERMA (08:13)
[2020-08-23] MEDS: sodium chloride 0.9% 1,000 ML 30 ML IV (08:54)
--- NOTE | 2020-08-23 09:02 | W.PM.OPSUD ---
Surgery/Procedure H&P Update DATE OF PROCEDURE: August 23, 2020 DATE H&P PERFORMED: 08/21/20 H&P UPDATE INFORMATION: I have reviewed H&P completed within last 30 days, I have examined patient prior to procedure and No changes to prior documentation PREOP DIAGNOSIS: Chronic pelvic pain PLANNED PROCEDURE: Operation Date: 08/23/20 09:00 Proposed Procedures p Laparoscopy Diagnostic 62633 R10.2(Not Applicable) - Lb Griffith MD
--- NOTE | 2020-08-23 10:22 | P.OP_ITS ---
Operative Report Date of procedure: August 23, 2020 Pre-op Diagnosis: Chronic pelvic pain Post-op diagnosis: same Post-op Diagnosis: Endometriosis Post-op Findings: Mild endometriosis Procedure Done: Diagnostic laparoscopy Pathology: none sent Surgeon: Lb Griffith MD Anesthesia: General Estimated blood loss (mL): 1 IV fluids (mL): 500 Urine output (mL): 100 Complications: None Findings: Mild endometriosis by uterosacral ligaments Condition: stable Disposition: PACU Brief History: 24-year-old female with history of chronic pelvic pain unresponsive to medical management Procedure: DESCRIPTION OF PROCEDURE: After informed consent, the patient was taken to the operating room where general anesthesia was administered. The patient was examined under anesthesia and found to have a normal uterus with normal adnexa. She was placed in the dorsal lithotomy position and prepped and draped in sterile fashion. Pre- Procedure Time-Out verifying the correct patient identity, correct procedure verified with consent, correct site and side, correct patient position, availability of correct implants and any special equipment or requirements was performed and acknowledge by the OR team. A weighted speculum was placed in the vagina, and the anterior lip of cervix was grasped with the single toothed tenaculum. A uterine manipulator was advanced into the endocervical. Tenaculum was removed after uterine manipulator was secured. The speculum was removed from the vagina. An intraumbilical incision was made with a scalpel. While tenting up on the abdomen, a Verres needle with sleeve was admitted into the intra-abdominal cavity. A saline drop test was performed and noted to be within normal limits. Pneumoperitoneum was attained with 4 liters of carbon dioxide. The Verres needle was removed. A 5 mm trocar and sleeve were admitted into the abdomen and laparoscopic confirmation of location was achieved, A second incision was made 3 cm above the symphysis pubis, and a 5 mm trocar and sleeve were admitted into the abdomen under direct, laparoscopic visualization without complication. A survey revealed normal abdominal anatomy. The pelvic survey shows normal uterus, left and right adnexa. A 5 mm blunt probe was advanced through the second trocar sleeve, and light manipulation of ovaries and uterus to assess the posterior aspects was performed. Scant blood noticed in the cul-de-sac. mild endometriosis lesions were noticed at the uterosacral ligament. The lesions were treated with monopolar fulguration. No bleeding noticed. carbon dioxide was allowed to escape from the abdomen. The instruments were removed, and skin cover with a bandage. The instruments were removed from the vagina, and excellent hemostasis was noted. The patient tolerated the procedure well, and sponge, lap and needle count were correct times two. The patient taken to the recovery room in good condition.
[2020-08-23] MEDS: ondansetron 2 mg/ML SDV 2 mL 4 MG IVP (10:26)
[2020-08-23] MEDS: fentaNYL 50 mcg/mL INJ 2mL IVP (10:27)
--- NOTE | 2020-08-23 14:55 | ANE.PACU2 ---
Inpatient post-anesthesia follow up: Airway intact: Yes Vital signs: Temperature 98.4 F Pulse Rate 78 Respiratory Rate 18 Blood Pressure 116/73 Pulse Oximetry 96 Oxygen Delivery Me thod Room Air Oxygen Flow Rate 2 Fraction of Inspir ed Oxygen Hydration adequate: Yes Nausea and vomiting: No Pain level: 2 Mental status: Baseline
== END 2020-08-23 11:53 | disposition home or self-care (01) ==
PROVIDERS: Visit Provider Obstetrics & Gynecology
PROC: (CPT 49320; principal; 2020-08-23 08:50)
DX: R10.2 Pelvic and perineal pain (principal); N80.9 Endometriosis, unspecified; F41.9 Anxiety disorder, unspecified; Z87.891 Personal history of nicotine dependence
CPT/HCPCS: 49320; 36415; 80053; 81001; 81025; 84703; 85025; 86850; 86900; 87086; 96365; J0690; J1170; J1885; J2405; J2704; J2710; J3010; J3490; J7030

== ENCOUNTER → 2020-08-28 13:45 | Outpatient (BNVA) | payer OTHER, MEDICAID, SELFPAY | PROVIDERS: Visit Provider Psychiatry & Neurology Psychiatry | DX: F60.3 Borderline personality disorder (principal); F33.2 Major depressive disorder, recurrent severe without psychotic features; F41.1 Generalized anxiety disorder | CPT/HCPCS: 99204 ==

== ENCOUNTER → 2020-09-18 07:39 | Outpatient (BNVA) | payer OTHER, MEDICAID, SELFPAY | PROVIDERS: Visit Provider Psychiatry & Neurology Psychiatry | DX: F41.1 Generalized anxiety disorder (principal); F33.2 Major depressive disorder, recurrent severe without psychotic features; F60.3 Borderline personality disorder | CPT/HCPCS: 99214 ==

== ENCOUNTER → 2020-10-16 09:36 | Outpatient (BNVA) | payer OTHER, MEDICAID, SELFPAY | PROVIDERS: PCP Family Medicine Adult Medicine; Visit Provider Obstetrics & Gynecology | DX: Z30.017 Encounter for initial prescription of implantable subdermal contraceptive (principal); N80.9 Endometriosis, unspecified; Z30.9 Encounter for contraceptive management, unspecified; N94.10 Unspecified dyspareunia | CPT/HCPCS: 81025 ==

== ENCOUNTER → 2020-10-20 11:01 | Outpatient (BNVA) | payer MEDICAID, SELFPAY | PROVIDERS: PCP Family Medicine Adult Medicine; Visit Provider Internal Medicine | DX: Z01.812 Encounter for preprocedural laboratory examination (principal); Z20.822 Contact with and (suspected) exposure to COVID-19 | CPT/HCPCS: 87635 ==

== ENCOUNTER → 2020-10-23 10:48 | Outpatient (BNVA) | payer MEDICAID, SELFPAY | PROVIDERS: PCP Family Medicine Adult Medicine; Visit Provider Psychiatry & Neurology Psychiatry | DX: F43.12 Post-traumatic stress disorder, chronic (principal); F60.3 Borderline personality disorder; F41.1 Generalized anxiety disorder; F33.2 Major depressive disorder, recurrent severe without psychotic features | CPT/HCPCS: 99214 ==

== ENCOUNTER 2020-10-26 09:19 | Day surgery (SDC) | payer MEDICAID, SELFPAY ==
[2020-10-24 15:19] VITALS: BMI 19.1
--- NOTE | 2020-10-26 09:30 | ANES.PREANE2 ---
Pre-Anesthetic Assessment Pre-Anesthetic Assessment: Height/Weight: Height 1.65 m Weight 52.163 kg Preop Diagnosis: Chronic pelvic pain Proposed Procedure: Operation Date: 10/26/20 10:45 Proposed Procedures p EGD/Colon 65645 R11.0(Not Applicable) - Venkata Perez MD s Colonoscopy 11603 K52.9(Not Applicable) - Venkata Perez MD Familial anesthetic complications: PONV w/ general Was Beta Jessica taken within 24 hours: N/A Was Clonidine taken within 24 hours: N/A Last intake: > 8hrs Social: Social History: No alcohol and No tobacco Exam: Pre-Anes Outpt Exam: alert, oriented x 3, clear to auscultation bilaterally and regular rate & rhythm Airway: Cervical ROM: WNL MP: 1 Dentition: Full Neuropsych: Neuropsych: Anxiety and Depression Anesthetic Plan: ASA status: 1 Anesthesia: MAC Risk of > 500 ml blood loss (7ml/kg in children): No PFSH Anesthesia PFSH: Medical History Anxiety Chronic nausea Chronic pelvic pain in female Endometriosis GERD (gastroesophageal reflux disease) Major depressive disorder, recurrent severe without psychotic features Surgical History H/O laparoscopy 08/23/2020- diagnostic laparoscopy performed by Dr. Griffith at [facility] S/P cholecystectomy Family History Mother Heart disease Denies family history of Colon cancer Ovarian cancer Diabetes Clotting disorder Hyperlipidemia Breast cancer Anesthesia complication Bleeding disorder Hypertension Uterine cancer Thyroid condition Stroke Social History (Updated 10/16/20 @ 09:43 by Salma Hernandez RN) Smoking and tobacco status: former smoker Quit status (tobacco): has quit using tobacco Year quit tobacco: 2019 Second hand smoke exposure: No Alcohol intake: never Marital status: Data Anesthesia Cardiac Studies: No Data to Display
[2020-10-26 10:00] VITALS: BP 115/81; PULSE 74; RESP 16; TEMP 36.4; O2SAT 95
[2020-10-26] MEDS: sodium chloride 0.9% 1,000 ML 30 ML IV (10:20)
--- NOTE | 2020-10-26 11:01 | W.PM.OPSUD ---
Surgery/Procedure H&P Update DATE OF PROCEDURE: October 26, 2020 DATE H&P PERFORMED: 10/02/20 H&P UPDATE INFORMATION: I have reviewed H&P completed within last 30 days, I have examined patient prior to procedure and No changes to prior documentation PREOP DIAGNOSIS: panendoscopy PLANNED PROCEDURE: Operation Date: 10/26/20 10:45 Proposed Procedures p EGD/Colon 65167 R11.0(Not Applicable) - Venkata Perez MD s Colonoscopy 64122 K52.9(Not Applicable) - Venkata Perez MD
[2020-10-26 11:02] LABS: OR HCG Qualitative Urine Negative (Negative)
[2020-10-26 11:29] VITALS: BP 100/69; PULSE 76; RESP 18; TEMP 36.2; O2SAT 100
[2020-10-26 11:38] VITALS: BP 108/73; PULSE 77; RESP 18; TEMP 36.2; O2SAT 98
--- NOTE | 2020-10-26 19:51 | ANE.PACU2 ---
Inpatient post-anesthesia follow up: Airway intact: Yes Vital signs: Temperature 97.1 F Pulse Rate 77 Respiratory Rate 18 Blood Pressure 108/73 Pulse Oximetry 98 Oxygen Delivery Me thod Room Air Oxygen Flow Rate Fraction of Inspir ed Oxygen Hydration adequate: Yes Nausea and vomiting: No Pain level: 1 Mental status: Baseline
== END 2020-10-26 11:50 | disposition home or self-care (01) ==
PROVIDERS: Anesthesiology; PCP Family Medicine Adult Medicine; Visit Provider Surgery
PROC: 0DJD8ZZ Inspection of Lower Intestinal Tract, Via Natural or Artificial Opening Endoscopic (ICD-10-PCS; CPT 45378; 2020-10-26 10:45)
PROC: 0DJ08ZZ Inspection of Upper Intestinal Tract, Via Natural or Artificial Opening Endoscopic (ICD-10-PCS; CPT 43235; 2020-10-26 10:45)
DX: R11.2 Nausea with vomiting, unspecified (principal); K52.9 Noninfective gastroenteritis and colitis, unspecified; K29.50 Unspecified chronic gastritis without bleeding
CPT/HCPCS: 43239; 45380; 81025; 82274; 83630; 84703; 87493; 87506; 88305; 96360; J7030

== ENCOUNTER → 2020-10-31 08:17 | Outpatient (BNVA) | payer MEDICAID, SELFPAY | PROVIDERS: PCP Family Medicine Adult Medicine; Visit Provider Psychiatry & Neurology Psychiatry | DX: F43.12 Post-traumatic stress disorder, chronic (principal); F41.1 Generalized anxiety disorder; F60.3 Borderline personality disorder; F33.2 Major depressive disorder, recurrent severe without psychotic features | CPT/HCPCS: 99213 ==

== ENCOUNTER → 2020-12-15 09:45 | Outpatient (BNVA) | payer MEDICAID, SELFPAY | PROVIDERS: PCP Family Medicine Adult Medicine; Visit Provider Social Worker | DX: F33.2 Major depressive disorder, recurrent severe without psychotic features (principal) | CPT/HCPCS: 90834 ==

== ENCOUNTER → 2020-12-20 09:50 | Outpatient (BNVA) | payer MEDICAID, SELFPAY | PROVIDERS: PCP Family Medicine Adult Medicine; Visit Provider Social Worker | DX: F33.2 Major depressive disorder, recurrent severe without psychotic features (principal) | CPT/HCPCS: 90834 ==

== ENCOUNTER → 2020-12-21 09:49 | Outpatient (BNVA) | payer MEDICAID, SELFPAY | PROVIDERS: PCP Family Medicine Adult Medicine; Visit Provider Psychiatry & Neurology Psychiatry | DX: F43.12 Post-traumatic stress disorder, chronic (principal); F41.1 Generalized anxiety disorder; F60.3 Borderline personality disorder; F33.2 Major depressive disorder, recurrent severe without psychotic features | CPT/HCPCS: 99214 ==

== ENCOUNTER → 2020-12-29 09:49 | Outpatient (BNVA) | payer MEDICAID, SELFPAY | PROVIDERS: PCP Family Medicine Adult Medicine; Visit Provider Social Worker | DX: F33.2 Major depressive disorder, recurrent severe without psychotic features (principal) | CPT/HCPCS: 90834; 85025 ==

== ENCOUNTER → 2021-01-05 10:48 | Outpatient (BNVA) | payer MEDICAID, SELFPAY | PROVIDERS: PCP Family Medicine Adult Medicine; Visit Provider Social Worker | DX: F33.2 Major depressive disorder, recurrent severe without psychotic features (principal) | CPT/HCPCS: 90834 ==

== ENCOUNTER 2021-01-31 18:17 | Emergency (ER) | payer MEDICAID, SELFPAY ==
--- NOTE | 2021-01-31 18:24 | XRR_ITS ---
PROCEDURE INFORMATION: Exam: XR Right Hand Exam date and time: 01/31/2021 6:24 PM Age: 25 years old Clinical indication: Patient HX: Injury to hand x 1wk ago, right hand pain TECHNIQUE: Imaging protocol: XR Right hand. Views: 3 or more views. COMPARISON: No relevant prior studies available. FINDINGS: Bones/joints: Normal. Soft tissues: Normal. XR/XR hand RT min 3V* [id number] IMPRESSION: No acute findings.
[2021-01-31 19:20] VITALS: BP 94/57; PULSE 60; RESP 16; TEMP 37.1; O2SAT 98; BMI 18.9
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
== END 2021-01-31 20:41 | disposition home or self-care (01) ==
PROVIDERS: Emergency Provider Nurse Practitioner Family; PCP Family Medicine Adult Medicine
DX: S60.221A Contusion of right hand, initial encounter (principal); Z87.891 Personal history of nicotine dependence; W22.09XA Striking against other stationary object, initial encounter
CPT/HCPCS: 73130; 99282

== ENCOUNTER → 2021-02-02 08:46 | Outpatient (BNVA) | payer MEDICAID, SELFPAY | PROVIDERS: PCP Family Medicine Adult Medicine; Visit Provider Psychiatry & Neurology Psychiatry | DX: F33.2 Major depressive disorder, recurrent severe without psychotic features (principal); F41.1 Generalized anxiety disorder; F60.3 Borderline personality disorder; F43.12 Post-traumatic stress disorder, chronic; N73.0 Acute parametritis and pelvic cellulitis; N92.1 Excessive and frequent menstruation with irregular cycle; Z97.5 Presence of (intrauterine) contraceptive device; N73.9 Female pelvic inflammatory disease, unspecified; R10.2 Pelvic and perineal pain | CPT/HCPCS: 99214 ==

== ENCOUNTER 2021-03-18 00:22 | Emergency (ER) | payer MEDICAID, SELFPAY ==
[2021-03-18 00:39] VITALS: BP 111/75; PULSE 76; RESP 16; TEMP 36.7; O2SAT 97; BMI 18.6
--- NOTE | 2021-03-18 00:44 | XRR_ITS ---
PROCEDURE INFORMATION: Exam: XR Right Hand Exam date and time: 03/18/2021 12:44 AM Age: 25 years old Clinical indication: Pain; Hand; Right; Additional info: Right hand injury - x 1 month old - still pain and swelling TECHNIQUE: Imaging protocol: XR Right hand. Views: 3 or more views. COMPARISON: CR ( EX, ) 01/31/2021 6:38 PM FINDINGS: Bones/joints: Normal. Soft tissues: Normal. XR/XR hand RT min 3V* [id number] IMPRESSION: No acute findings.
--- NOTE | 2021-03-18 01:09 | W.ED.EXTPRO ---
HPI - Extremity Problem General: Chief complaint: Extremity Injury, Upper Stated complaint: R Hand Injury Time Seen by Provider: 03/18/21 00:48 History of Present Illness: HPI Narrative: 25-year-old female comes in today with injury to the right hand. Patient is concerned about some swelling to the fifth knuckle of the right hand. Patient reports that she gets angry and she said hits the wall. Patient has normal range of motion of the hand. Review of Systems General: Reports: 10 or more systems reviewed and unremarkable except in HPI and below Musc: Reports: other (Right hand pain.) PFSH ED PFSH: Medical History (Updated 03/18/21 @ 01:11 by ANNETTE Butler) Anxiety Chronic nausea Chronic pelvic pain in female Endometriosis GERD (gastroesophageal reflux disease) Major depressive disorder, recurrent severe without psychotic features Psychiatric care Surgical History H/O esophagogastroduodenoscopy (10/26/20) normal H/O laparoscopy 08/23/2020- diagnostic laparoscopy performed by Dr. Griffith at [facility] S/P cholecystectomy Status post colonoscopy (10/26/20) normal Family History Mother Heart disease Denies family history of Colon cancer Ovarian cancer Diabetes Clotting disorder Hyperlipidemia Breast cancer Anesthesia complication Bleeding disorder Hypertension Uterine cancer Thyroid condition Stroke Social History (Updated 12/29/20 @ 14:33 by Salma Hernandez RN) Smoking and tobacco status: former smoker Quit status (tobacco): has quit using tobacco Year quit tobacco: 2019 Alcohol intake: never Female Reproductive History: Date of last menstrual period: 02/23/21 Physical Exam Const: COMMON NORMALS: no acute distress and patient oriented x3 GENERAL APPEARANCE: cooperative HENMT: COMMON NORMALS: normocephalic and Normal external nose present HEAD & SCALP: normal to inspection and normocephalic NOSE: Normal external nose present Eye: GENERAL EYE: appearance normal, both eyes and all related structures Neck/C-Spine: COMMON NORMALS: full ROM Chest: COMMONS NORMALS: normal inspection of the chest Resp: COMMON NORMALS: normal respiratory effort EFFORT & INSPECTION: Yes able to speak in complete sentences Cardio: COMMON NORMALS: regular rate and regular rhythm RATE: regular rate RHYTHM: regular rhythm GI: COMMON NORMALS: non-tender Extremity: NARRATIVE EXTREMITY EXAM: Mild ecchymosis and some mild swelling noted to the fifth MCP joint of the right hand. Patient has normal range of motion, sensation, and cap refill. Neuro: COMMON NORMALS: patient oriented x3 and moves all extremities Psych: COMMON NORMALS: mental status grossly normal and cooperative Skin: COMMON NORMALS: no rashes or lesions noted GENERAL SKIN EXAM: no rashes or lesions noted Course Vital Signs: Vital signs: Vital Signs Temperature 98.0 F 03/18/21 00:39 Pulse Rate 76 03/18/21 00:39 Respiratory Rate 14 03/18/21 01:18 Blood Pressure 111/75 03/18/21 00:39 Pulse Oximetry 97 03/18/21 00:39 MDM - Extremity (Nontraumatic) MDM Narrative: Medical decision making narrative: Patient comes in for injury to the right hand. On exam there is some mild swelling and ecchymosis to the fifth knuckle of the right hand. Patient has good range of motion. Differential diagnosis includes fracture, sprain, contusion. X-ray noted no fracture. Suspect just a contusion to the hand. Recommended not hitting any more fung. Patient states that she has anger issues and she will continue to hit the fung. Recommended discussing further with her primary care or counselor. Patient reported understanding and agreed to plan. Discharge Plan Discharge Patient Disposition: Home Clinical Impression: Contusion of hand Qualifiers: Encounter type: initial encounter Laterality: right Qualified Code(s): S60.221A - Contusion of right hand, initial encounter Condition: Stable Prescriptions: No Action Nexplanon 68 mg implant subdermal RF: 0 lamotrigine [Lamictal] 25 mg tablet 25 mg PO DAILY Qty: 150 RF: 0 prazosin 5 mg capsule 5 mg PO .HS Qty: 30 RF: 2 trazodone 50 mg tablet 100 mg PO .HS PRN (Reason: insomnia) Qty: 60 RF: 2 Premarin 0.3 mg tablet 0.3 mg PO DAILY RF: 0 doxycycline hyclate 100 mg capsule 100 mg PO BID RF: 0 metronidazole 500 mg tablet 500 mg PO BID RF: 0 ibuprofen 200 mg tablet 200 mg PO Q6H PRNRF: 0 ibuprofen [Motrin IB] 200 mg tablet 400 mg PO TID PRN (Reason: pain/ breakthrough bleeding with nexplanon) RF: 0 ibuprofen 600 mg tablet 600 mg PO TID PRN (Reason: pain) RF: 0 Discharge Orders: Discharge ED (Routine); Ordered 03/18/21 Ordered By: Robert Gutierrez Discharge Diet: Usual diet Discharge Activity: Increase activity as tolerated Patient Instructions: Opioid Safety Activity Restrictions/Additional Instructions: Activity as tolerated. Use ice for pain. Use Tylenol and ibuprofen for further pain control. Follow-up with primary care as needed. Return to the ER for new concerns. Coding Level of Care Code ED Weather Teacher for Brittney De Paz
[2021-03-18 01:18] VITALS: RESP 14
== END 2021-03-18 01:19 | disposition home or self-care (01) ==
PROVIDERS: Emergency Provider Nurse Practitioner Family
DX: S60.221A Contusion of right hand, initial encounter (principal); Z87.891 Personal history of nicotine dependence; W22.09XA Striking against other stationary object, initial encounter
CPT/HCPCS: 73130; 99282

== ENCOUNTER 2021-11-23 22:12 | Emergency (ER) | payer MEDICAID, SELFPAY ==
[2021-11-23 22:14] VITALS: BP 147/85; PULSE 83; RESP 18; TEMP 36.9; O2SAT 99; BMI 17.1
--- NOTE | 2021-11-23 23:08 | W.ED.NECK ---
HPI - Neck Pain/Injury General: Chief Complaint: Neck Pain/Injury Stated Complaint: head pain Time Seen by Provider: 11/23/21 23:08 History of Present Illness: 25-year-old female comes in today with complaints of right side facial pain. Patient reports pain is tender to touch in the preauricular area and in the sternocleidomastoid area of the postauricular. Patient reports that she will feel a popping sensation in that area and then she will start having significant pain and discomfort from 12 to 72 hours. Patient had been seen prior to this by other providers with minimal to no relief. Patient has been tried on steroids anti-inflammatories. Patient's primary care gave her cyclobenzaprine to try and then recommended that she follow-up in the month as needed. Review of Systems General: Reports: 10 or more systems reviewed and unremarkable except in HPI and below ENMT: Reports: other (Right side facial pain) Card: Denies: chest pain Resp: Denies: dyspnea PFS ED PFSH: Medical History Anxiety And depression and has seen [facility] in the past. Not currently on any medication Endometriosis Diagnosed in 2020 on laparoscopy. 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 Morley ---symptoms were nausea/vomitting and diarrhea Surgical History H/O esophagogastroduodenoscopy (10/26/20) normal H/O laparoscopy 08/23/2020- diagnostic laparoscopy performed by Dr. Griffith at [facility] ---> On laparoscopy mild endometriosis noted on uterosacral ligaments which were fulgurated. No other lesions noted. S/P cholecystectomy Laparoscopic procedure in 2016 Status post colonoscopy (10/26/20) normal Family History Mother Heart disease Denies family history of Colon cancer Ovarian cancer Diabetes Hyperlipidemia Breast cancer Hypertension Uterine cancer Thyroid condition Stroke Female Reproductive History: Date of last menstrual period: 02/23/21 Physical Exam Const: COMMON NORMALS: alert HENMT: COMMON NORMALS: TM's normal bilaterally FACE & SINUS: Facial tenderness on exam of face and sinuses (Preauricular and postauricular area) on the right TYMPANIC MEMBRANE: TM's normal bilaterally MOUTH: Normal oral and palatal mucosa present TEETH & GINGIVA: no abnormal tooth and associated gingiva Neck/C-Spine: CERVICAL SPINE: No Cervical spine tenderness and No Paracervical muscle tenderness Resp: COMMON NORMALS: normal respiratory effort Cardio: COMMON NORMALS: regular rate RATE: regular rate Extremity: COMMON NORMALS: normal to inspection Neuro: SENSORIUM/ORIENTATION: Yes alert Skin: COMMON NORMALS: no rashes or lesions noted GENERAL SKIN EXAM: no rashes or lesions noted Course Vital Signs: Vital signs: Vital Signs Temperature 98.4 F 11/23/21 22:14 Pulse Rate 63 11/23/21 23:15 Respiratory Rate 16 11/23/21 23:15 Blood Pressure 129/75 11/23/21 23:15 Pulse Oximetry 99 11/23/21 23:15 MDM - Neck Pain/Injury Medical Decision Making Patient comes in today for complaints of pain and discomfort to the right side of the face. On exam patient has normal range of motion of the neck. Posterior pharynx is normal. Bilateral TMs are normal. Patient has tenderness in the preauricular area and the postauricular area. Review of anatomy notes that its in the zygomatic process patient has tenderness in the preauricular area and in the sternocleidomastoid insertion in the postauricular area. There is some mild swelling in the postauricular area. Differential diagnosis includes tendinitis, strain, trigeminal neuralgia, TMJ syndrome. I treat patient's pain with hydrocodone and a dose of ketorolac in the ER. Patient was also given 1 dose of dexamethasone for inflammation. Patient be continued on diclofenac routinely until pain resolves and then hydrocodone for breakthrough pain. Recommend continued follow-up with primary care for further evaluation and treatment. Discharge Plan Discharge Patient Disposition: Home Clinical Impression: Right facial pain Condition: Stable Prescriptions: New diclofenac sodium 75 mg tablet,delayed release (DR/EC) 75 mg PO BID PRN (Reason: pain) Qty: 20 0RF Rx Instructions: Use for pain and inflammation of face hydrocodone-acetaminophen 5-325 mg tablet 1 tab PO Q8H PRN (Reason: pain (scale score 7-10)) Qty: 10 0RF Discharge Orders: Discharge ED (Routine); Ordered 11/23/21 Ordered By: Robert Gutierrez Discharge Diet: Usual diet Discharge Activity: Increase activity as tolerated Patient Instructions: Musculoskeletal Pain (ED) Activity Restrictions/Additional Instructions: Drink plenty of water with medication. Soft foods and limit talking until pain resolves. Use ice or heat to the area for further comfort. Use diclofenac routinely until pain resolves. Use acetaminophen to control pain. Do not use ibuprofen or naproxen with diclofenac. Use hydrocodone for severe pain. Follow-up with primary care for further instruction. Coding Level of Care Code ED Aluminum Shingle Roofer for Brittney De Paz
[2021-11-23 23:15] VITALS: BP 129/75; PULSE 63; RESP 16; O2SAT 99
[2021-11-23] MEDS: HYDROcodone-acetaminophen 7.5-325 mg Tablet 1 TAB PO (23:18)
[2021-11-23] MEDS: ketorolac 30 mg/mL INJ IM (23:19)
[2021-11-23] MEDS: dexamethasone 10 mg/mL INJ IM (23:27)
[2021-11-23 23:37] VITALS: BP 129/75; PULSE 63; RESP 16; O2SAT 99
== END 2021-11-23 23:38 | disposition home or self-care (01) ==
PROVIDERS: Emergency Provider Nurse Practitioner Family
DX: R51.9 Headache, unspecified (principal)
CPT/HCPCS: 96372; 99283; J1100; J1885

== ENCOUNTER 2021-12-21 15:03 | Outpatient (CLI) | payer MEDICAID, SELFPAY ==
--- NOTE | 2021-12-21 15:12 | MR_ITS ---
WS: [id number] MRI HEAD WITH CONTRAST TECHNIQUE: Sagittal T1, T2 axial, T2 axial FLAIR, axial susceptibility weighted imaging, axial diffus ion weighted images, and coronal T2 images were obtained. Pre and post-T1 axial and post T1 coronal i mages. ADC and FSPGR images. CLINICAL INFORMATION: JAW PAIN/BLEPHAROSPASM COMPARISON: None. FINDINGS: No evidence of restricted diffusion to suggest acute ischemia. Ventricular system and basal cisterns are patent. Normal reid-white differentiation. No suspicious intracranial signal abnormalities. Caridad l posterior fossa. Normal vascular flow voids at the skull base. No extra axial fluid collections. No evidence of mass or mass effect. Mild mucosal thickening paranasal sinuses. Mastoid air cells are well aerated. Low-lying cerebellar t onsils measuring 4 to 5 mm. Normal posterior nasopharynx. Normal parapharyngeal fat. Normal optic chi asm and pituitary infundibulum. Temporal lobes and hippocampal formations are normal in appearance. N o abnormal intracranial enhancement. Normal dural venous sinuses. Normal cavernous sinuses and Meckel 's cave Somewhat prominent lacrimal glands bilaterally are symmetric in appearance. This may be benign and in cidental but recommend clinical correlation with history of Sjogren syndrome, sarcoidosis, or lymphoi d hyperplasia/inflammatory pseudotumor. Rectus muscles appear normal. MR/MR head wo/w con [id number] IMPRESSION: 1. No evidence of restricted diffusion to suggest acute ischemia. 2. No suspicious intracranial signal abnormalities. Normal reid-white differen tiation. 3. No hemosiderin on susceptibly weighted images. 4. Temporal lobes and hippocampal formations are normal in appearance. 5. Somewhat prominent lacrimal glands bilaterally are symmetric in appearance. This may be benign and incidental but recommend clinical correlation with hist ory of Sjogren syndrome, sarcoidosis, or lymphoid hyperplasia/inflammatory pseu dotumor. 6. No abnormal intracranial enhancement. 7. Slightly low-lying cerebellar tonsils measuring 4 to 5 mm below the foramen magnum. Normal 4th ventricle. No hydrocephalus.
== END 2021-12-21 15:04 | disposition home or self-care (01) ==
LOC: RAD 15:06
PROVIDERS: PCP Family Medicine; Visit Provider Family Medicine
DX: G24.5 Blepharospasm (principal); R68.84 Jaw pain
CPT/HCPCS: 70553; A9579

== ENCOUNTER 2022-03-29 13:10 | Outpatient (CLI) | payer MEDICAID, SELFPAY ==
[2022-03-29 13:59] LABS: Erythrocyte Sedimentation Rate 3 mm/hr (0-15)
[2022-03-29 14:18] LABS: Complement C3 102 mg/dL (90-180)
[2022-04-01 12:38] LABS: COMPLEMENT COMPONENT C3C 101 mg/dL (83-193); COMPLEMENT COMPONENT C4C 21 mg/dL (15-57)
[2022-04-01 14:33] LABS: CENTROMERE B ANTIBODY <1.0 NEG AI (<1.0 NEG); JO-1 ANTIBODY <1.0 NEG AI (<1.0 NEG); RNP ANTIBODY <1.0 NEG AI (<1.0 NEG); SCL-70 ANTIBODY <1.0 NEG AI (<1.0 NEG); SJOGREN'S ANTIBODY (SS-A) <1.0 NEG AI (<1.0 NEG); SM ANTIBODY <1.0 NEG AI (<1.0 NEG); SS-B <1.0 NEG AI (<1.0 NEG)
[2022-04-01 15:28] LABS: COMPLEMENT, TOTAL (CH50) 52 U/mL (31-60)
[2022-04-01 15:43] LABS: THYROID PEROXIDASE ANTIBODIES 1 IU/mL (<9)
[2022-04-02 12:57] LABS: ANA PATTERN Nuclear, Speckled; ANA SCREEN, IFA POSITIVE (NEGATIVE); ANA TITER 1:40 titer
[2022-04-02 13:42] LABS: DNA AB (DS) CRITHIDIA,IFA NEGATIVE (NEGATIVE)
== END 2022-03-29 13:11 | disposition home or self-care (01) ==
LOC: LAB 13:12
PROVIDERS: PCP Family Medicine; Visit Provider Specialist
DX: R20.0 Anesthesia of skin (principal); R20.2 Paresthesia of skin
CPT/HCPCS: 85651; 86160; 86162; 86235; 86255; 86376; 86431

== ENCOUNTER 2022-04-26 06:21 | Outpatient (CLI) | payer MEDICAID, SELFPAY ==
[2022-04-26] MEDS: iohexol 350 mg/mL 500 mL Btl (per mL) IV (06:54)
--- NOTE | 2022-04-26 07:00 | CT_ITS ---
WS: [id number] CT ANGIOGRAM CEREBRAL AND CAROTID ARTERIES HISTORY: Migraines, carotid bruit. Facial pain. TECHNIQUE: CT angiogram is performed of the carotid and cerebral arteries. During arterial injection imaging is obtained from the skull vertex to the aortic arch in 1.25 mm imaging. Coronal and sagittal reformats are submitted. Additional multi planar reformats of the carotid and cerebral arteries are submitted, MIP imaging also reviewed. NASCET criteria utilized. [facility] CT [facility] at least one of these dose optimization techniques: automated exposure control; mA and/or kV adjust ment per patient size (includes targeted exams where dose is matched to clinical indication); or iter ative reconstruction. CONTRAST: Omnipaque 350; 95 mL IV. DLP: 859.43 mGy.cm COMPARISON: None available. Prior MRI brain 12/21/[address] is first performed. Normal appearance of the brain. No loss of the reid-white mat ter. No prior infarct. Ventricles are normal. No acute blood products. No enhancing masses on the pos tcontrast imaging or vascular malformation. Carotid Angiogram: Right carotid: Common carotid artery: Arises normally from the innominate artery. No significant plaque or stenosis. Internal carotid artery: No plaque or stenosis. External carotid artery: Patent. Left carotid: Common carotid artery: Arises normally from the aorta. No significant plaque or stenosis. Internal carotid artery: No plaque or stenosis. External carotid artery: Patent. Right vertebral artery: Unremarkable. Left vertebral artery: Unremarkable. Arises normally from the subclavian artery. Subclavian arteries: No stenosis or significant abnormality. Upper thorax: Normal. Thyroid gland: Normal. Osseous structures: Unremarkable. CEREBRAL ANGIOGRAM: Intracranial vertebral arteries: Normal with no significant atherosclerosis. Basilar artery: No significant stenosis or occlusion. No aneurysm. Intracranial Internal carotid arteries: Demonstrates no significant stenosis or plaque. Middle cerebral arteries: Normal. Anterior cerebral arteries and ACOM: Normal. Posterior cerebral arteries and PCOM's: Normal. Dural venous sinuses are normally enhancing.0 Mastoid air cells: Normal. Paranasal sinuses: Normal. Calvarium: Normal. CT/CT angio headneck* [id number] IMPRESSION: 1. Normal carotid arteries. 2. Unremarkable point [place]. 3. No acute intracranial hemorrhage or mass effect or edema. 4. No evidence for vasculitis.
== END 2022-04-26 06:22 | disposition home or self-care (01) ==
LOC: RAD 06:22
PROVIDERS: PCP Family Medicine; Visit Provider Specialist
DX: G43.711 Chronic migraine without aura, intractable, with status migrainosus (principal); G50.0 Trigeminal neuralgia; G24.5 Blepharospasm; R09.89 Other specified symptoms and signs involving the circulatory and respiratory systems
CPT/HCPCS: 70496; 70498

== ENCOUNTER 2022-06-05 20:21 | Emergency (ER) | payer MEDICAID, SELFPAY ==
--- NOTE | 2022-06-05 20:21 | XRR_ITS ---
PROCEDURE INFORMATION: Exam: XR Right Foot Exam date and time: 06/05/2022 8:40 PM Age: 26 years old Clinical indication: Pain; Foot; Right; Additional info: Right foot injury TECHNIQUE: Imaging protocol: Radiologic exam of the Right foot. Views: 3 or more views. COMPARISON: No relevant prior studies available. FINDINGS: Bones/joints: Osseous structures are intact. Negative for fracture. Joint spaces are preserved. Soft tissues: Normal. XR/XR foot RT min 3V* [id number] IMPRESSION: No acute findings.
[2022-06-05 20:31] VITALS: BP 124/76; PULSE 76; RESP 16; TEMP 36.4; O2SAT 98; BMI 17.4
--- NOTE | 2022-06-05 20:36 | ED_ITS ---
HPI - Extremity Problem General: Chief complaint: Extremity Injury, Lower Stated complaint: Rt Foot Injury Time Seen by Provider: 06/05/22 20:27 History of Present Illness: 26-year-old female comes in today with injury to the right foot. Patient reports a empty keg turning over onto foot injuring the top of the right foot. 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 Patient appears well. Patient appears no acute distress. Review of Systems Musc: Reports: extremity pain PFSH ED PFSH: Medical History Anxiety And depression and has seen [facility] in the past. Not currently on any medication Endometriosis Diagnosed in 2020 on laparoscopy. 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 Morley ---symptoms were nausea/vomitting and diarrhea Surgical History H/O esophagogastroduodenoscopy (10/26/20) normal H/O laparoscopy 08/23/2020- diagnostic laparoscopy performed by Dr. Griffith at [facility] ---> On laparoscopy mild endometriosis noted on uterosacral ligaments which were fulgurated. No other lesions noted. S/P cholecystectomy Laparoscopic procedure in 2016 Status post colonoscopy (10/26/20) normal Family History Mother Heart disease Denies family history of Colon cancer Ovarian cancer Diabetes Hyperlipidemia Breast cancer Hypertension Uterine cancer Thyroid condition Stroke Social History Smoking and tobacco status: never smoked Female Reproductive History: Date of last menstrual period: 05/21/22 Physical Exam Const: COMMON NORMALS: alert HENMT: COMMON NORMALS: normocephalic HEAD & SCALP: normocephalic Neck/C-Spine: COMMON NORMALS: full ROM Resp: COMMON NORMALS: normal respiratory effort Cardio: COMMON NORMALS: regular rate RATE: regular rate Extremity: RIGHT LOWER EXTREMITY: Yes foot & digits (Mild ecchymosis and minimal swelling noted to the right foot. Pulses intac) Neuro: SENSORIUM/ORIENTATION: Yes alert Skin: COMMON NORMALS: turgor normal GENERAL SKIN EXAM: turgor normal Course Vital Signs: Vital signs: Vital Signs Temperature 97.6 F 06/05/22 20:31 Pulse Rate 76 06/05/22 20:31 Respiratory Rate 16 06/05/22 20:31 Blood Pressure 124/76 06/05/22 20:31 Pulse Oximetry 98 06/05/22 20:31 Oxygen Delivery Me thod 06/05/22 20:31 MDM - Extremity (Nontraumatic) Medical Decision Making Patient comes in for evaluation of injury to the right foot. On exam there is some mild ecchymosis to the dorsal right foot. Positive pulses. Distal cap refill. Vital signs are normal. Differential includes fracture, contusion, a brasion. X-ray shows no significant abnormality. Reviewed exam with patient with recommendations for treatment and follow-up. Patient reported understanding agreed to plan. Lab Data Radiology Impressions Foot X-Ray 06/05/22 20:21 IMPRESSION: No acute findings. Discharge Plan Discharge Patient Disposition: Home Clinical Impression: Contusion of foot Qualifiers: Encounter type: initial encounter Laterality: right Qualified Code(s): S90.31XA - Contusion of right foot, initial encounter Condition: Stable Prescriptions: Continued hydrocodone-acetaminophen 5-325 mg tablet 1 tab PO Q8H PRN (Reason: pain (scale score 7-10)) Qty: 10 0RF diclofenac sodium 75 mg tablet,delayed release (DR/EC) 75 mg PO BID PRN (Reason: pain) Qty: 20 0RF Rx Instructions: Use for pain and inflammation of face No Action amitriptyline 25 mg tablet 25 mg PO DAILY Qty: 30 3RF topiramate [Topamax] 100 mg tablet 100 mg PO ONCE 90 Days Qty: 90 3RF Rx Instructions: 1/2 tab for 2 weeks then 1 tab daily Discharge Orders: Discharge ED (Routine); Ordered 06/05/22 Ordered By: Robert Gutierrez Referrals: Hattie Soni DO [Primary Care Provider] - Discharge Diet: Usual diet Discharge Activity: Increase activity as tolerated Patient Instructions: Foot Contusion (ED) Activity Restrictions/Additional Instructions: Use elastic bandage for comfort. Wear a good supportive shoe. Rest and elevate foot is much as possible. Use acetaminophen and diclofenac to control pain. Use hydrocodone for severe pain. Do not use hydrocodone if driving or operating equipment that may put yourself or others at danger. Drink plenty of water with medication. Return to ER for new concerns or worsening symptoms. Coding Level of Care Code ED Snow[facility] for Brittney Fwsunita Exam Detailed
[2022-06-05 21:00] VITALS: RESP 16
== END 2022-06-05 21:30 | disposition home or self-care (01) ==
PROVIDERS: Emergency Provider Nurse Practitioner Family; PCP Family Medicine
DX: S90.31XA Contusion of right foot, initial encounter (principal); W20.8XXA Other cause of strike by thrown, projected or falling object, initial encounter
CPT/HCPCS: 73630; 99283